=== PATIENT | male | born 1955 | race Caucasian/White ===

== ENCOUNTER 2017-08-18 08:59 | Observation (INO) | payer BC ==
[2017-08-18 10:35] LABS: Troponin I 0.025 ng/mL (< 0.028)
[2017-08-18] MEDS ORDERED: Sodium Chloride 0.9% 1,000 ML IV SCH (12:03)
[2017-08-18] MEDS ORDERED: Ondansetron ODT 4 MG TAB SL PRN (12:03)
[2017-08-18] MEDS ORDERED: Ondansetron HCl/PF 4 MG/2 ML Vial IVP PRN (12:03)
--- NOTE | 2017-08-18 12:12 | HP ---
DATE OF ADMISSION: 08/18/2017 PRIMARY CARE PHYSICIAN: Ham Gómez D.O. TIME OF SERVICE: 10:15 CHIEF COMPLAINT: Chest pain, nausea. HISTORY OF PRESENT ILLNESS: Mr. Alarcon is a 61-year-old white male with history of rosacea, hypothyr oidism, hyperlipidemia, primary triglycerides, anxiety/depression, obesity, who presents to the emerg ency department in an outside facility in [place] for evaluation of chest discomfort. He describes it as chest tightness lasted about an hour and started on 04:30 this morning. He is accompanied by s ome nausea without vomiting and some shortness of breath. He states that when he takes a deep breath , his chest tightness feels tighter. He presented to the emergency department for evaluation. We ga ve him some aspirin and Zofran, initially noted to be hypoxic, but cleared with deep inspiration. He had a history of a stress test some 10 years ago. So they transferred him here for further workup. On arrival here, he is afebrile. Vital signs have been normal. No recurrence of the chest pain abou t 05:20 this morning. Review of the records showed he had a stress test back 5 years ago in 2012 that was negative. The levi qureshi said that was done for a routine screening. He denies any fevers, no chills, but he does feel cold. No current nausea or vomiting. No diarrhea or constipation. Overall, he feels "lousy." Denies any muscle aches, cough or phlegm production. PAST MEDICAL HISTORY: 1. Hypothyroidism. 2. Rosacea. 3. Hyperlipidemia. 4. Anxiety/depression. 5. Obesity. PAST SURGICAL HISTORY: 1. Appendectomy. 2. Cholecystectomy. 3. Left knee scoping x2. 4. Epididymectomy. 5. Eye muscle surgery remotely for strabismus. HOME MEDICATIONS: 1. Something for his rosacea, he cannot recall. 2. He has new hyperlipidemia medicine. He has not picked it from the pharmacy yet. Does not take a ny of his thyroid. ALLERGIES: 1. DARVOCET/PROPOXYPHENE. 2. IODINE. 3. PENICILLIN causes a rash. 4. SHELLFISH. 5. STATINS cause muscle aches. FAMILY HISTORY: Negative for clotting or bleeding disorder. No immune dysfunction. Dad lived well into his 90s and mom lived into her mid 80s without any premature coronary artery disease. SOCIAL HISTORY: Negative for habits x3. Use only rare social alcohol, no IV drug use. 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 REVIEW OF SYSTEMS: A 10-point review of systems was performed, negative for all systems except as pe r HPI. PHYSICAL EXAMINATION: VITAL SIGNS: Temperature 97.8, pulse 63, blood pressure 152/94, respiratory rate 15, satting 94% on room air. GENERAL: He is awake. He is alert. He is oriented x3. He is overweight, well-developed, well-nour ished, white male who appears to be in no distress. HEENT: Normocephalic, atraumatic. His pupils are equal, round, and reactive bilaterally. Mucosa me mbranes are moist. No visible lesion. No thrush. NECK: Supple. No lymphadenopathy, no JVD, no thyromegaly. Normal carotid upstrokes without bruits. LUNGS: Clear. He has fine bibasilar crackles that cleared with deep inspiration. He has no wheezes , no rales, no rhonchi. No prolonged expiratory phase. CARDIOVASCULAR: Normal S1, S2. No S3, S4. No audible murmurs. ABDOMEN: Obese, it is nontender, nondistended. I cannot palpate internal organs. EXTREMITIES: No cyanosis, clubbing with 1+ edema from the mid tibia level down. SKIN: Warm, moist and well perfused. He has no other rash or lesions. NEUROLOGIC: Cranial nerves II-XII are grossly intact. He has 5/5 strength in all 4 extremities. No focal deficits. Normal speech. MUSCULOSKELETAL: Normal to inspection. Large joints appear un-inflamed. He has good range of motio n. LABORATORY DATA: Sodium 139, potassium 3.8, chloride 106, bicarb 22, BUN 16, creatinine 1.17, glucos e 77 and calcium 9.2. Liver function appears within normal limits. We got CBC, which showed white count 6.0, hemoglobin 13 .8, hematocrit 43.6, and platelet count 148,000 with normal differential. CK-MB was normal at 4.1, troponin I was undetectable less than 0.010. D-dimer was normal at 0.3. BN P was normal, less than 10. IMAGING DATA: Chest x-ray showed poor penetration, but no acute cardiopulmonary disease noted. ASSESSMENT AND PLAN: 1. Chest discomfort. Seriously doubt cardiac in nature. We will place the patient in observation. We will get serial cardiac biomarkers, check morning fasting lipid profile and get a nuclear stress test if his biomarkers remain negative. In the meantime, we will place him on nitro paste, beta-bloc ker, full dose aspirin, and oxygen 2 liters nasal cannula continuous to protect his heart in the mean time. His biomarkers turn positive, we will hold on stress test and ask Cardiology to evaluate. 2. Severe obesity. 3. Hypothyroidism. We will check morning TSH and free T4. 4. Rosacea. 5. Anxiety/depression. 6. Hyperlipidemia, fasting profile in the morning. 7. Obesity.
[2017-08-18] MEDS ORDERED: Ondansetron ODT 4 MG TAB PO PRN (12:13)
[2017-08-18] MEDS ORDERED: HYDROcodone/Acetaminophen 10/325 mg Tablet PO PRN (12:13)
[2017-08-18] MEDS ORDERED: Acetaminophen 325 MG TAB PO PRN (12:13)
[2017-08-18] MEDS: HYDROcodone/Acetaminophen 5/325 mg Tablet PO PRN ×2 (12:22→20:23)
[2017-08-18] MEDS ORDERED: Enoxaparin Sodium 40 MG/0.4 ML SYRINGE SC SCH (12:30)
[2017-08-18 12:33] VITALS: BMI 35.6
[2017-08-18 13:24] LABS: CKMB 5.7 ng/mL (0-6.6); Troponin I Less than 0.010 ng/mL (< 0.028)
[2017-08-18] MEDS: Nitroglycerin 2% Ointment 1 INCH/1 GM Packet TOP SCH ×2 (14:04→21:44)
--- NOTE | 2017-08-18 15:50 | NM ---
STRESS MYOCARDIAL PERFUSION STUDY: 08/18/17 HISTORY: Chest pain, dyslipidemia, family history of coronary artery disease. RADIOPHARMACEUTICALS: 29.4 millicuries technetium 99m Sestamibi, IV at stress. MEDICATIONS: 24.8 mL (74.5 mg) Adenosine, IV. COMPARISON: 03/09/13. FINDINGS: There is normal uptake and distribution of radiotracer seen throughout the left ventricular myocardiu m on stress acquisition. No focal defect is seen within the left ventricular myocardium on stress river ging. The gated images show normal ventricular wall motion and wall thickening. The calculated left v entricular ejection fraction is 59%. Calculated left ventricular ejection fraction on the prior study was 63%. IMPRESSION: 1. Normal stress only myocardial perfusion study without evidence of a defect to suggest ischemi a or scarring involving the left ventricular myocardium. 2. Normal LV function with normal LVEF of 59%. POS: [facility]
[2017-08-18 16:03] LABS: CKMB 6.4 ng/mL (0-6.6); Troponin I Less than 0.010 ng/mL (< 0.028)
[2017-08-18] MEDS: Sodium Chloride 0.9% 1,000 ML IV SCH (17:53)
[2017-08-18] MEDS: Famotidine 20 MG TAB PO SCH (20:20)
[2017-08-18] MEDS ORDERED: Metoprolol Tartrate 25 MG TAB PO SCH (21:00)
[2017-08-18 21:28] LABS: CKMB 5.8 ng/mL (0-6.6); Troponin I Less than 0.010 ng/mL (< 0.028)
[2017-08-19] MEDS: Sodium Chloride 0.9% 1,000 ML IV SCH (03:30)
[2017-08-19] MEDS: Nitroglycerin 2% Ointment 1 INCH/1 GM Packet TOP SCH (05:25)
[2017-08-19 06:05] LABS: Cardiac Risk 6.6 (Less than 4.5); Cholesterol 164 mg/dl (< 200 Desired); HDL Cholesterol 25 mg/dL (>60 Neg Risk); Triglycerides 409 mg/dL (Less than 150)
[2017-08-19 06:09] LABS: CKMB 4.3 ng/mL (0-6.6); Troponin I 0.014 ng/mL (< 0.028)
--- NOTE | 2017-08-19 08:32 | DIS ---
PRIMARY CARE PHYSICIAN: Dr. Rohan Gómez DATE OF ADMISSION: 08/18/2017 DATE OF DISCHARGE: 08/19/2017 DISCHARGE DIAGNOSES: 1. Noncardiac chest pain. 2. Hyperlipidemia, primary triglycerides. 3. Obesity. 4. Hypothyroidism. 5. Medical noncompliance. CONSULTATIONS: None. PROCEDURES: Cardiolite stress test 08/18/2016. HOSPITAL COURSE: Mr. Alarcon is a 61-year-old male with the above history who presents to an outside Emergency Department on the day of admission with acute onset of chest pressure starting about 0430, awoke up out of sleep. He presented to the emergency department and it went away about an hour after it started. He does not cite any specific intervention that caused it to go away. Initial workup was negative, biomarkers normal, blood counts normal. He was transferred here for fur ther workup. On arrival, he received another set of cardiac biomarkers that were negative. We were called for adm ission. HOSPITAL COURSE: The patient was seen and examined by me, placed in observation overnight. A third set of biomarkers were negative and a Cardiolite stress test was ordered and performed late on 2017. It was negative for reversible/induced ischemia and negative for EKG changes. Overnight, he did well. This morning he was complaining of some dizziness, but vital signs were norm al and he had a normal orthostatics. Repeat labs were unremarkable. Troponins were negative x4, hem oglobin A1c was normal at 6.0, and triglycerides were elevated in the 406 range, which is not new for this patient. He was discharged home on his home medication regimen with the addition of aspirin 81 mg daily to follow up with the primary care physician. DISCHARGE PHYSICAL EXAMINATION: The patient was seen and examined on the day of discharge. Dischar ge plan and disposition was discussed with the patient face to face at the bedside. DISCHARGE MEDICATIONS: 1. Aspirin 81 mg daily. 2. Doxycycline 100 mg daily for rosacea. 3. Levothyroxine 50 mcg daily. 4. Mobic 7.5 mg daily as needed. 5. Venlafaxine 75 mg daily. FOLLOWUP APPOINTMENTS: Dr. Rohan Gómez within a week. DISCHARGE ACTIVITY: Per cardiopulmonary limits. DISCHARGE DIET: Heart healthy recommended. DISCHARGE CONDITION: Stable. DISPOSITION: He will be discharged home via private vehicle.
[2017-08-19] MEDS ORDERED: Enoxaparin Sodium 40 MG/0.4 ML SYRINGE SC SCH (09:00)
[2017-08-19] MEDS ORDERED: Aspirin 325 mg Enteric Coated Tablet PO SCH (09:00)
[2017-08-19 09:20] VITALS: BP 125/68; TEMP 98.3
[2017-08-19] MEDS: Famotidine 20 MG TAB PO SCH (09:36)
--- NOTE | 2017-08-21 14:25 | EKG ---
Test Reason : CP Blood Pressure : / mmHG Vent. Rate : 061 BPM Atrial Rate : 061 BPM P-R Int : 160 ms QRS Dur : 086 ms QT Int : 404 ms P-R-T Axes : 020 032 048 degrees QTc Int : 406 ms Normal sinus rhythm with sinus arrhythmia Normal ECG Confirmed by LUNA RAMIREZ ([id number]), editorial cartoonist MAYO HANNAH ([id number]) on 08/21/2017 2:24:49 PM Referred By: Confirmed By:LNUA RAMIREZ
--- NOTE | 2017-10-18 15:26 | STRESS ---
Acquisition Time: 2017-08-18 14:03:10 Total Exercise Time: 00:04:00 Test Indications: CHEST PAIN Medications: Protocol: ADENOSINE Max HR: 088 BPM 55% of Pred: 160 BPM Max BP: 160/086 mmHG Max Work Load: 1.0 METS RESTING ECG: NORMAL SINUS RHYTHM AT 70 BPM SYMPTOMS: CHEST PAIN AND HEADACHE NORMAL BP RESPONSE ECTOPY: RARE PAC'S AND PVC'S ECG STRESS: NO SIGNIFICANT CHANGES INTERPRETATION: NEGATIVE ECG/AWAIT NUCLEAR IMAGES FOR DEFINITIVE DIAGNOSIS Confirmed by NIRANJAN YEUNG ELLEN ([id number]) on 10/18/2017 3:26:04 PM Referred By: MD Batsheva HARRY Confirmed By:BETSY YEUNG PA-C
== END 2017-08-19 12:30 | disposition home or self-care (01) ==
LOC: ERS 08:59 → 2SW 10:22
PROVIDERS: ADMIT Internal Medicine Infectious Disease; ATTEND Internal Medicine Infectious Disease
DX: R07.89 Other chest pain (principal); E78.5 Hyperlipidemia, unspecified; E03.9 Hypothyroidism, unspecified; F41.9 Anxiety disorder, unspecified; F32.9 Major depressive disorder, single episode, unspecified; E66.9 Obesity, unspecified; Z68.35 Body mass index [BMI] 35.0-35.9, adult; Z88.0 Allergy status to penicillin; Z88.8 Allergy status to other drugs, medicaments and biological substances; Z91.041 Radiographic dye allergy status; Z91.14 Patient's other noncompliance with medication regimen
CPT/HCPCS: 36415; 78452; 80061; 82553; 83036; 84484; 87804; 93005; 93017; 96360; 96361; 96372; A9500; G0378; J0153; J1650; Q0162

== ENCOUNTER 2018-02-15 22:07 | Inpatient (IN) | payer BC, SELFPAY ==
[2018-02-15 23:01] LABS: Bilirubin Negative (Negative); Blood, Urine Trace (Negative); Clarity CLEAR (Clear); Glucose, Urine (Dipstick) >=1000 mg/dL (Negative); Leukocyte Negative (Negative); Nitrite Negative (Negative); Protein, Urine (Dipstick) Negative (Neg-Trace); Specific Gravity, Urine 1.029 (1.002-1.036); Urobilinogen 0.2 mg/dL (0.2-1.0)
[2018-02-15 23:13] LABS: Bacteria/HPF None Seen HPF (None Seen); Hyaline Casts/LPF NONE SEEN LPF (0-3 Hyaline); RBC/HPF 0-3 HPF (0-3); Squamous Epithelial 0-3 HPF (0-3); WBC/HPF None Seen HPF (0-3)
[2018-02-16 00:37] LABS: #Basophils 0.1 thou/uL (0.0-0.2); #Eosinphils 0.1 thou/uL (0.0-0.7); #Lymphocytes 2.1 thou/uL (1.20-3.40); #Monocytes 0.6 thou/uL (0.11-0.59); #Neutrophils 4.7 thou/uL (1.40-6.50); %Basophils 0.9 % (0.0-1.0); %Eosinophils 1.4 % (0.0-10.0); %Lymphocytes 27.9 % (21.0-51.0); %Monocytes 7.9 % (0.0-10.0); %Neutrophils 61.8 % (42.0-75.0); Hemoglobin 15.3 g/dL (14.0-18.0); Mean Corpuscular HGB CONC 36.4 g/dL (32.0-36.0); Mean Corpuscular Hemoglobin 32.1 pg (27.0-31.0); Mean Corpuscular Volume 88.2 fL (78.0-98.0); Platelet Count 144 thou/uL (130-400); RBC Distribution Width 11.8 % (11.5-14.5); Red Blood Cell (RBC) Count 4.77 mill/uL (4.70-6.10); White Blood Cell (WBC) Count 7.6 thou/uL (4.8-10.8)
[2018-02-16 01:02] LABS: ALT (SGPT) 71 U/L (8-55); AST (SGOT) 46 U/L (5-34); Albumin 4.6 g/dL (3.4-4.8); Alkaline Phosphatase 178 U/L (40-150); Anion Gap 17 mmol/L (10-20); BUN (Urea Nitrogen) 18 mg/dL (8.4-25.7); Bilirubin, Total 1.8 mg/dL (0.2-1.2); CK (CPK) 428 U/L (30-200); Calc. Creatinine Clearance 0 mL/min (70-130); Calcium 10.2 mg/dL (7.8-10.44); Carbon Dioxide 18 mmol/L (23-31); Chloride 97 mmol/L (98-107); Estimated GFR-MDRD 38; Globulin 4.1 g/dL (2.4-3.5); Potassium 3.8 mmol/L (3.5-5.1); Protein, Total 8.7 g/dL (5.8-8.1); Sodium 128 mmol/L (136-145)
[2018-02-16 01:05] LABS: CKMB 5.5 ng/mL (0-6.6); Glucose 591 mg/dL (80-115); Troponin I Less than 0.010 ng/mL (< 0.028)
[2018-02-16 01:56] LABS: Magnesium 2.3 mg/dL (1.6-2.6); Phosphorus 3.6 mg/dL (2.3-4.7)
[2018-02-16] MEDS ORDERED: Insulin Regular 300 UNITS/3 ML VIAL ONE (02:16)
[2018-02-16 06:19] VITALS: BMI 34.7
--- NOTE | 2018-02-16 07:39 | RAD ---
CHEST 1 VIEW: HISTORY: Chest pain, abdominal pain, and weakness. COMPARISON: Radiograph of 08/18/17. FINDINGS: The lungs are clear. No pneumothorax or effusion. Cardiac silhouette and mediastinal contours are w ithin normal limits. IMPRESSION: No acute intrathoracic abnormality. POS: [facility]
--- NOTE | 2018-02-16 07:41 | CT ---
PRELIMINARY REPORT/[facility]/EMERGENTY AFTER-HOURS PROCEDURE CT Abdomen and Pelvis Without Intravenous Contrast CLINICAL HISTORY: 62 years old, male; Pain; Abdominal pain; Flank; Other: Bilateral; Patient HX: Er 7; M62 presented to ed C/O back pain localized around his kidney's bilaterally onset 2 weeks ago. Pt reports pain has wo rsened these past couple of days. Pt reports back pain is exacerbated when he urinates. Pt reports af ter he drinks any liquids, he will have to go to urinate in about 3 minutes. Pt denies abdominal pain , denies n/v/d, denies fever, cough, SOB, or cp. Pt denies HX of kidney stones. Pt reports surgical H X of cholecystectomy. TECHNIQUE: Axial computed tomography images of the abdomen and pelvis without intravenous contrast. Coronal reformatted images were created and reviewed. COMPARISON: No relevant prior studies available. FINDINGS: Lung bases: Normal. No mass. No consolidation. ABDOMEN: Liver: Hepatic steatosis. Gallbladder and bile ducts: Normal. Pancreas: Normal. Spleen: Normal. Adrenals: Normal. Kidneys and ureters: Normal. Stomach and bowel: Normal. PELVIS: Appendix: No findings to suggest acute appendicitis. Bladder: Normal. Reproductive: Normal as visualized. ABDOMEN and PELVIS: Intraperitoneal space: Normal. No free air. No significant fluid collection. Bones/joints: Multilevel thoracolumbar spine degenerative changes. Minimal levoscoliosis of the lumbar spine. No acute fracture. No dislocation. Soft tissues: Normal. Vasculature: Normal. No abdominal aortic aneurysm. Lymph nodes: Normal. IMPRESSION: 1. No acute findings. 2. Non-acute findings are described above. Thank you for allowing us to participate in the care of your patient. Dictated and Authenticated by: Narendra Mayo MD 02/16/2018 1:21 AM Central Time ([place] & [place]) FINAL REPORT CT ABDOMEN AND PELVIS WITHOUT CONTRAST STONE PROTOCOL: HISTORY: Flank pain. COMPARISON: None. FINDINGS: Lung bases are clear. No pericardial effusion. here is diffuse hepatic steatosis. No nephroureterolithiasis or hydroureteral nephrosis. No secondary evidence of a recently passed sto ne. IMPRESSION: Findings and impression are concordant with the preliminary report. POS: [facility]
[2018-02-16] MEDS ORDERED: Dextrose 50% Abboject 50 ML SYRINGE SLOW IVP PRN (11:09)
[2018-02-16] MEDS ORDERED: HumaLOG 300 UNITS/3 ML VIAL SC PRN (11:09)
[2018-02-16] MEDS ORDERED: Dextrose 5% in Water 1,000 ML IV PRN (11:09)
[2018-02-16] MEDS ORDERED: Senokot 8.6 MG TAB PO PRN (11:09)
[2018-02-16] MEDS ORDERED: Guaifenesin DM 100-10/5 ML UDCUP PO PRN (11:09)
[2018-02-16] MEDS: Sodium Chloride 0.9% 1,000 ML IV SCH ×2 (11:57→21:39)
[2018-02-16] MEDS: HumaLOG 300 UNITS/3 ML VIAL SC PRN ×2 (12:11→17:45)
[2018-02-16 16:43] LABS: Anion Gap 12 mmol/L (10-20); BUN (Urea Nitrogen) 13 mg/dL (8.4-25.7); Calc. Creatinine Clearance 107 mL/min (70-130); Calcium 8.8 mg/dL (7.8-10.44); Carbon Dioxide 23 mmol/L (23-31); Chloride 108 mmol/L (98-107); Estimated GFR-MDRD 55; Glucose 273 mg/dL (80-115); Potassium 3.6 mmol/L (3.5-5.1); Sodium 139 mmol/L (136-145)
[2018-02-16] MEDS ORDERED: Potassium Chloride 20 MEQ TAB PO SCH (17:00)
--- NOTE | 2018-02-16 19:17 | HP ---
REASON FOR ADMISSION: New onset diabetes mellitus type 2, acute kidney injury, moderate dehydration, elevated liver enzymes, for further evaluation. HISTORY OF PRESENT ILLNESS: The patient gives history of feeling bad from last two weeks. This has been progressively getting worse. He has been having lower back pain along with frequent urination from last 3 days. He has no complaints of diarrhea and nausea. No complaints of cough or expectoration. No complaints of chest pain, palpitation, PND, or orthopnea. His last physical exam was a year ago and turned out everything well per patient. 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 CURRENT MEDICATIONS: Takes levothyroxine 50 mcg daily. ALLERGIES: Allergic to DARVON, IODINE, PENICILLIN, SHELLFISH and STATINS. SHELLFISH causes his throat to close up. STATINS cause itching. PERSONAL HISTORY: Does not abuse alcohol or drugs. No history of smoking. 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 He stays with his . FAMILY HISTORY: Mother at the age of 85 years. She has had history of COPD. Father of stroke and he was 95 years old. CODE STATUS: FULL. REVIEW OF SYSTEMS: The following complete review of systems was negative, unless otherwise mentioned in the HPI or below: Constitutional: Weight loss or gain, ability to conduct usual activities. Skin: Rash, itching. Eyes: Double vision, pain. ENT/Mouth: Nose bleeding, neck stiffness, pain, tenderness. Cardiovascular: Palpitations, dyspnea on exertion, orthopnea. Respiratory: Shortness of breath, wheezing, cough, hemoptysis, fever or night sweats. Gastrointestinal: Poor appetite, abdominal pain, heartburn, nausea, vomiting, constipation, or diarrhea. Genitourinary: Urgency, frequency, dysuria, nocturia. Musculoskeletal: Pain, swelling. Neurologic/Psychiatric: Anxiety, depression. Allergy/Immunologic: Skin rash, bleeding tendency. PHYSICAL EXAMINATION: GENERAL: The patient is a 62-year-old male who is currently not in any acute distress. VITAL SIGNS: Blood pressure 138/86, pulse 84 per minute, respiratory rate 16 per minute, temperature 98.1 degrees Fahrenheit, saturating 96% on room air. NECK: Supple, no elevated JVD. HEENT: Eyes: Extraocular muscles intact. Pupils reacting to light. Oral cavity: Mucous membranes are dry. No exudates or congestion. CARDIOVASCULAR: S1, S2 heard. Regular rhythm. RESPIRATORY: Air entry 2+ bilateral. No rales or rhonchi. ABDOMEN: Soft, bowel sounds heard. No tenderness, rigidity or guarding. EXTREMITIES: No peripheral edema or calf tenderness. VASCULAR SYSTEM: Peripheral pulses 2+ bilateral. No ischemic ulcerations or gangrene. CENTRAL NERVOUS SYSTEM: No gross focal deficits noted. The patient is alert, awake, oriented well. PSYCHIATRIC: The patient's mood is euthymic. No hallucinations or delusions. LABORATORY AND X-RAY FINDINGS: CT of the abdomen and pelvis done shows no acute abnormalities. Chest x-ray done shows no acute cardiopulmonary abnormalities. Beta hydroxybutyrate is elevated at 0.6, serum glucose was almost 600 at 591, BUN 18, creatinine 1.8, serum bicarbonate is 18. Sodium 128 , chloride is 97, AST 46, ALT 71, alkaline phosphatase 178. CK was 428, total bilirubin 1.8. First set of cardiac enzymes are negative. Albumin is 4.6. Lipase is 70. White count of 7, H&H 15 and 42, platelet count 144 with 61% neutrophils. EKG done shows normal sinus rhythm at 80 beats per minute. CLINICAL IMPRESSION AND PLAN: The patient will be admitted to medical floor for new onset severe hyperglycemia with diabetes mellitus type 2, metabolic acidosis, acute kidney injury, moderate dehydration, hyponatremia, elevated liver enzymes for further evaluation. Likely has mild diabetic ketoacidosis with new onset type 2 diabetes. The patient will be aggressively hydrated and we will place him on Lantus 10 units subcu twice daily for now. He will also be on Humalog moderate coverage at a.c. and at bedtime. We will obtain acute hepatitis panel. We will follow up his electrolytes closely. If needed, potassium will be replaced in view of massively elevated serum glucose. If his creatinine does not get corrected, likely the patient has underlying CKD as well. We will obtain a lipid profile in the morning as well. [facility]
[2018-02-16] MEDS: Famotidine 20 MG TAB PO SCH (21:39)
[2018-02-16] MEDS: Insulin Glargine 10 UNITS in Pre-Filled Syringe 1 EACH SC SCH (21:42)
[2018-02-17 05:08] LABS: Hemoglobin A1c 10.3 % (4.0-6.0)
[2018-02-17 05:28] LABS: Anion Gap 13 mmol/L (10-20); BUN (Urea Nitrogen) 14 mg/dL (8.4-25.7); Calc. Creatinine Clearance 113 mL/min (70-130); Calcium 8.5 mg/dL (7.8-10.44); Carbon Dioxide 19 mmol/L (23-31); Cardiac Risk 14.5 (Less than 4.5); Chloride 109 mmol/L (98-107); Cholesterol 261 mg/dl (< 200 Desired); Estimated GFR-MDRD 58; Glucose 277 mg/dL (80-115); HDL Cholesterol 18 mg/dL (>60 Neg Risk); Potassium 3.8 mmol/L (3.5-5.1); Sodium 137 mmol/L (136-145); Triglycerides 871 mg/dL (Less than 150)
[2018-02-17 05:44] LABS: HBCM Index 0.06 S/CO (0-0.79); HBSAg Index 0.22 S/CO (0-0.99); Hep A IgM AB Non-Reactive (NonReactive); Hep A IgM S/CO 0.19 S/CO (0-0.79); Hep B Surf Ag Non-Reactive S/CO (NonReactive); Hep C IgG Ab Non-Reactive (NonReactive); Hep C Index 0.16 S/CO (0-0.79); Hepatitis B Core IGM Abs Non-Reactive (NonReactive)
[2018-02-17 06:09] LABS: #Basophils 0.1 thou/uL (0.0-0.2); #Eosinphils 0.2 thou/uL (0.0-0.7); #Lymphocytes 1.8 thou/uL (1.20-3.40); #Monocytes 0.4 thou/uL (0.11-0.59); #Neutrophils 2.7 thou/uL (1.40-6.50); %Basophils 1.1 % (0.0-1.0); %Eosinophils 4.5 % (0.0-10.0); %Lymphocytes 34.7 % (21.0-51.0); %Neutrophils 51.8 % (42.0-75.0); Hemoglobin 13.5 g/dL (14.0-18.0); Mean Corpuscular HGB CONC 36.6 g/dL (32.0-36.0); Mean Corpuscular Hemoglobin 33.1 pg (27.0-31.0); Mean Corpuscular Volume 90.7 fL (78.0-98.0); Mean Platelet Volume 8.5 fL (7.4-10.4); PLT Morphology Comment Appears Decreased; Platelet Count 118 thou/uL (130-400); RBC Distribution Width 11.8 % (11.5-14.5); Red Blood Cell (RBC) Count 4.08 mill/uL (4.70-6.10); White Blood Cell (WBC) Count 5.2 thou/uL (4.8-10.8)
[2018-02-17] MEDS: Levothyroxine Sodium 50 MCG TAB PO SCH (06:19)
[2018-02-17] MEDS: HumaLOG 300 UNITS/3 ML VIAL SC PRN ×3 (06:20→16:29)
[2018-02-17] MEDS: Acetaminophen 325 MG TAB PO PRN ×3 (06:27→21:06)
[2018-02-17] MEDS: Sodium Chloride 0.9% 1,000 ML IV SCH ×2 (06:27→17:10)
[2018-02-17] MEDS: glipiZIDE 5 MG TAB PO SCH ×2 (07:58→16:28)
[2018-02-17] MEDS: Fish Oil 1,000 MG CAP PO SCH (07:58)
[2018-02-17] MEDS: metFORMIN 500 MG TAB PO SCH ×2 (07:58→16:28)
[2018-02-17] MEDS: Famotidine 20 MG TAB PO SCH ×2 (07:58→21:05)
[2018-02-17] MEDS: Enoxaparin Sodium 30 MG/0.3 ML SYRINGE SC SCH (07:59)
[2018-02-17] MEDS: Lisinopril 5 MG TAB PO SCH (07:59)
[2018-02-17 09:06] LABS: Base Excess-Venous 0.2 mmol/L (0 (+/- 2.5)); Bicarbonate (HCO3v) 25.5 mmol/L (1.0-85.0); CO2 Tension (PvCO2) 42.3 mmHg (41.0-51.0); O2 Tension (PvO2) 43.4 mmHg (35.0-45.0); pH (Venous) 7.388 (7.35-7.45); vO2 Saturation-calc 78.3 % (94-98)
[2018-02-17 09:07] LABS: Calcium, Ionized 1.18 mmol/L (1.12-1.32); Hemoglobin - Calc 16.5 g/dL (12.0-18.0); Potassium 3.7 mmol/L (3.4-4.7); T. Carbon Dioxide 26.8 mmol/L (1.0-85.0)
[2018-02-17] MEDS: Insulin Glargine 10 UNITS in Pre-Filled Syringe 1 EACH SC SCH (09:07)
--- NOTE | 2018-02-17 11:31 | PDOC.PN ---
- Subjective Encounter Start Date: 02/17/18 Encounter Start Time: 07:50 Subjective: no sob, is ambulating in room -: feels better - Objective Resuscitation Status: Resuscitation Status FULL:Full Resuscitation MAR Reviewed: Yes Vital Signs & Weight: Vital Signs (12 hours) Temp Pulse Resp BP BP BP Pulse Ox 02/17/18 08:00 98.2 F 72 18 95 02/17/18 07:59 72 131/82 02/17/18 07:51 98.2 F 72 18 131/82 95 02/17/18 04:52 97.7 F 69 18 146/88 H 93 L Weight Weight 285 lb I&O: 02/16/18 02/17/18 02/18/18 06:59 06:59 06:59 Intake Total 2950 Balance 2950 Result Diagrams: 02/17/18 04:32 02/17/18 04:32 Additional Labs: Accuchecks 02/17/18 02/16/18 02/16/18 04:49 21:20 16:42 POC Glucose 296 H 297 H 243 H 02/16/18 11:20 POC Glucose 329 H Phys Exam - Physical Examination HEENT: PERRLA, moist MMs Neck: no JVD, supple Respiratory: no wheezing, no rales Cardiovascular: RRR, no significant murmur Gastrointestinal: soft, non-tender, no distention, positive bowel sounds Musculoskeletal: no edema, pulses present Neurological: non-focal, moves all 4 limbs Psychiatric: normal affect, A&O x 3 Dx/Plan (1) DM type 2 (diabetes mellitus, type 2) Status: Acute Qualifiers: Diabetes mellitus snf insulin use: without long term care social worker use Diabetes mellitus complication status: with hyperglycemia Qualified Code(s): E11.65 - Type 2 diabetes mellitus with hyperglycemia Comment: new onset (2) KRYSTEN (acute kidney injury) Code(s): N17.9 - ACUTE KIDNEY FAILURE, UNSPECIFIED Status: Acute Comment: resolving (3) Elevated LFTs Code(s): R94.5 - ABNORMAL RESULTS OF LIVER FUNCTION STUDIES Status: Acute (4) Obesity (BMI 30.0-34.9) Code(s): E66.9 - OBESITY, UNSPECIFIED Status: Acute (5) Metabolic acidosis Code(s): E87.2 - ACIDOSIS Status: Acute (6) Hypertriglyceridemia Code(s): E78.1 - PURE HYPERGLYCERIDEMIA Status: Acute (7) Dyslipidemia Code(s): E78.5 - HYPERLIPIDEMIA, UNSPECIFIED Status: Acute - Plan will add glypizide and metformin from today, dc lantus after am dose -: is allergic to HMG co-A inhibitors, tricor and fish oil plus strict diet co -: -ntrol of hypertriglyceridemia. Dietary consult -: ac hep panel is -ve. DC plan in am -: Plan is to place on all $4 pills so he can afford and be compliant * . Review of Systems - Medications/Allergies Allergies/Adverse Reactions: Allergies Allergy/AdvReac Type Severity Reaction Status Date / Time Penicillins Allergy Mild Rash Verified 08/18/17 12:02 Qmgeitv-Flu-Eyy Reductase Allergy Mild Rash Verified 08/18/17 12:03 Inhibitor iodine Allergy Anaphylaxis Verified 08/18/17 12:01 propoxyphene HCl Allergy Verified 02/16/18 07:33 [From Darvon] Medications: Current Medications Acetaminophen (Tylenol) 650 mg PO Q4H PRN PRN Reason: Headache/Fever or Pain Last Admin: 02/17/18 06:27 Dose: 650 mg Dextrose/Water (Dextrose 50%) 25 gm SLOW IVP PRN PRN PRN Reason: Hypoglycemia Enoxaparin Sodium (Lovenox) 30 mg SC 0900 [facility] Last Admin: 02/17/18 07:59 Dose: 30 mg Famotidine (Pepcid) 20 mg PO BID [facility] Last Admin: 02/17/18 07:58 Dose: 20 mg Fenofibrate (Tricor) 48 mg PO DAILY [facility] Fish Oil (Fish Oil) 1,000 mg PO DAILY [facility] Last Admin: 02/17/18 07:58 Dose: 1,000 mg Glipizide (Glucotrol) 5 mg PO BID-[facility] Last Admin: 02/17/18 07:58 Dose: 5 mg Glucagon (Glucagon) 1 mg IM PRN PRN PRN Reason: Hypoglycemia Guaifenesin/Dextromethorphan (Robitussin Dm) 15 ml PO Q4H PRN PRN Reason: Cough Dextrose/Water (D5w) 1,000 mls @ 0 mls/hr IV .Q0M PRN PRN Reason: Hypoglycemia Sodium Chloride (Normal Saline 0.9%) 1,000 mls @ 100 mls/hr IV .Q10H [facility] Last Admin: 02/17/18 06:27 Dose: 1,000 mls Insulin Human Lispro (Humalog) 0 units SC .MODERATE SLIDING SC PRN PRN Reason: Moderate Correctional Scale Last Admin: 02/17/18 06:20 Dose: 6 unit Insulin Human Lispro (Humalog) 0 units SC .BEDTIME SLIDING SC PRN PRN Reason: Bedtime Correctional Scale Levothyroxine Sodium (Synthroid) 50 mcg PO 0600 [facility] Last Admin: 02/17/18 06:19 Dose: 50 mcg Lisinopril (Zestril) 5 mg PO DAILY [facility] Last Admin: 02/17/18 07:59 Dose: 5 mg Metformin HCl (Glucophage) 500 mg PO BID-WM [facility] Last Admin: 02/17/18 07:58 Dose: 500 mg Senna (Senokot) 2 tab PO HSPRN PRN PRN Reason: Constipation Sodium Chloride (Flush - Normal Saline) 10 ml IVF Q12HR [facility] Last Admin: 02/17/18 09:08 Dose: Not Given Sodium Chloride (Flush - Normal Saline) 10 ml IVF PRN PRN PRN Reason: Saline Flush
[2018-02-17] MEDS: Fenofibrate 48 MG TAB PO SCH (11:38)
--- NOTE | 2018-02-17 13:47 | EKG ---
Test Reason : Blood Pressure : / mmHG Vent. Rate : 080 BPM Atrial Rate : 080 BPM P-R Int : 156 ms QRS Dur : 090 ms QT Int : 386 ms P-R-T Axes : 049 012 032 degrees QTc Int : 445 ms Normal sinus rhythm Normal ECG Confirmed by MEL ABEL D.O. ([id number]), book or script editor JOSE ARMANDO MOYA ([id number]) on 02/17/2018 1:47:29 PM Referred By: Confirmed By:MEL ABEL D.O.
--- NOTE | 2018-02-17 16:56 | EKG ---
Test Reason : Blood Pressure : / mmHG Vent. Rate : 072 BPM Atrial Rate : 072 BPM P-R Int : 152 ms QRS Dur : 094 ms QT Int : 422 ms P-R-T Axes : 024 030 041 degrees QTc Int : 462 ms Normal sinus rhythm Normal ECG Confirmed by GET WILDER ([id number]) on 02/17/2018 4:56:25 PM Referred By: MARKY Confirmed By:GET WILDER
[2018-02-18] MEDS: Sodium Chloride 0.9% 1,000 ML IV SCH (03:35)
[2018-02-18] MEDS: Levothyroxine Sodium 50 MCG TAB PO SCH (06:54)
[2018-02-18] MEDS: Famotidine 20 MG TAB PO SCH (08:25)
[2018-02-18] MEDS: Lisinopril 5 MG TAB PO SCH (08:25)
[2018-02-18] MEDS: metFORMIN 500 MG TAB PO SCH (08:26)
[2018-02-18] MEDS: glipiZIDE 5 MG TAB PO SCH (08:26)
[2018-02-18] MEDS: Fish Oil 1,000 MG CAP PO SCH (08:26)
[2018-02-18] MEDS: Enoxaparin Sodium 30 MG/0.3 ML SYRINGE SC SCH (08:27)
[2018-02-18] MEDS: Fenofibrate 48 MG TAB PO SCH (08:27)
[2018-02-18 08:31] VITALS: BP 125/76
--- NOTE | 2018-02-18 11:06 | PDOC.PN ---
- Subjective Encounter Start Date: 02/18/18 Encounter Start Time: 07:30 Subjective: feels a bit jittery this am, has not had his breakfast yet -: fingerstick is 200, peripheral pulses are felt -: no rash or chest pain or sob - Objective Resuscitation Status: Resuscitation Status FULL:Full Resuscitation MAR Reviewed: Yes Vital Signs & Weight: Vital Signs (12 hours) Pulse BP 02/18/18 08:25 63 125/76 Weight Weight 285 lb I&O: 02/17/18 02/18/18 02/19/18 06:59 06:59 06:59 Intake Total 2950 3200 240 Balance 2950 3200 240 Result Diagrams: 02/17/18 04:32 02/17/18 04:32 Additional Labs: Accuchecks 02/18/18 02/17/18 02/17/18 04:11 20:49 17:00 POC Glucose 203 H 207 H 215 H 02/17/18 02/17/18 02/17/18 16:12 16:05 11:31 POC Glucose 99 229 H 301 H Phys Exam - Physical Examination HEENT: PERRLA, moist MMs Neck: no JVD, supple Respiratory: no wheezing, no rales Cardiovascular: RRR, no significant murmur Gastrointestinal: soft, non-tender, no distention, positive bowel sounds Musculoskeletal: no edema, pulses present Neurological: non-focal, moves all 4 limbs Psychiatric: normal affect, A&O x 3 Dx/Plan (1) DM type 2 (diabetes mellitus, type 2) Status: Acute Qualifiers: Diabetes mellitus superintendent marine oil terminal insulin use: without superintendent marine oil terminal use Diabetes mellitus complication status: with hyperglycemia Qualified Code(s): E11.65 - Type 2 diabetes mellitus with hyperglycemia Comment: new onset (2) KRYSTEN (acute kidney injury) Code(s): N17.9 - ACUTE KIDNEY FAILURE, UNSPECIFIED Status: Resolved (3) Elevated LFTs Code(s): R94.5 - ABNORMAL RESULTS OF LIVER FUNCTION STUDIES Status: Acute (4) Obesity (BMI 30.0-34.9) Code(s): E66.9 - OBESITY, UNSPECIFIED Status: Chronic (5) Metabolic acidosis Code(s): E87.2 - ACIDOSIS Status: Resolved (6) Hypertriglyceridemia Code(s): E78.1 - PURE HYPERGLYCERIDEMIA Status: Acute (7) Dyslipidemia Code(s): E78.5 - HYPERLIPIDEMIA, UNSPECIFIED Status: Acute - Plan may dc home -: dietary consultation prior to discharge -: counselled reg medication and dietary compliance -: meds faxed to his pharmacy -: diabetic education per staff * .
[2018-02-18 11:09] VITALS: TEMP 97.2
[2018-02-18] MEDS: HumaLOG 300 UNITS/3 ML VIAL SC PRN (12:10)
--- NOTE | 2018-02-18 20:22 | DIS ---
DATE OF ADMISSION: 02/16/2018 DATE OF DISCHARGE: 02/18/2018 DISCHARGE DISPOSITION: To home. PRIMARY DISCHARGE DIAGNOSES: 1. New-onset diabetes with severe hyperglycemia with mild diabetic ketoacidosis , resolved. 2. Acute kidney injury, resolved. 3. Elevated liver function tests, likely due to severe hyperlipidemia and hypertriglyceridemia. 4. Metabolic acidosis due to acute kidney injury. 5. Obesity. PROCEDURES DONE DURING HOSPITALIZATION: CT of the abdomen and pelvis without IV contrast done showed hepatic steatosis, otherwise no acute findings. Chest x -ray done showed no acute intrathoracic abnormality. H&H 13 and 37, platelet count 118, MCV is 90. Triglycerides 871, total cholesterol 261, HDL 18. Hemoglobin A1c 10.3. Admitting BUN and creatinine were 18 and 1.8 with serum glucose of 591 on the day of admission. Sodium was 128, total bilirubin 1.8, AST 46, ALT 71, alkaline phosphatase 178, CK levels 428. One set of cardiac enzymes was negative. Lipase was 70. Beta hydroxybutyrate 0.6. Acute hepatitis panel was negative. DISCHARGE MEDICATIONS: Metformin 500 mg p.o. twice daily, glipizide 5 mg p.o. daily, fish oil 1000 mg p.o. daily, lisinopril 5 mg p.o. daily, TriCor 48 mg p.o. daily, Synthroid 50 mcg p.o. daily. ALLERGIES: STATINS, PENICILLIN, IODINE, PROPOXYPHENE. DISCHARGE PLAN: The patient to follow up with primary care physician in 1 week. He has been advised to check fingerstick glucose twice daily and record for a period of 10 days and to follow up with primary care physician. BRIEF COURSE DURING HOSPITALIZATION: The patient initially came in with complaints of feeling bad, which was progressively getting worse. He also had frequent urination from last 3 days. He was found to have had serum sugars of 591. He was essentially admitted for new-onset diabetes with severe hyperglycemia and mild diabetic ketoacidosis, acute kidney injury, metabolic acidosis, and elevated LFTs. The patient has severe hypertriglyceridemia as well and is allergic to STATINS. In view of this, he was placed on TriCor along with fish oil. He was initially on Levemir, which has been transitioned to metformin and glipizide. The patient wanted to be on 4-dollar medication as he does not have insurance. He is also placed on a small dose of lisinopril for renal protection with mild hypertension. The patient has been advised to check fingerstick glucose twice daily for a period of 10 days and needs to follow up with primary care physician for changes in his medications. He is ambulating and eating well prior to discharge. Please see a [id number] documentation for the day of discharge. Please note, the patient had a dietary consultation as well to help with his hypertriglyceridemia with STATIN allergy and new-onset diabetes. [place]
== END 2018-02-18 14:11 | disposition home or self-care (01) | DRG 682 ==
LOC: ERS 22:07 → T4-B 02-16 05:12 → OBSVTOIN 02-16 05:12
PROVIDERS: ADMIT Hospitalist; ATTEND Hospitalist
DX: N17.9 Acute kidney failure, unspecified (principal); E11.10 Type 2 diabetes mellitus with ketoacidosis without coma; E87.1 Hypo-osmolality and hyponatremia; E87.2 Acidosis; E86.0 Dehydration; Z79.84 Long term (current) use of oral hypoglycemic drugs; E78.5 Hyperlipidemia, unspecified; E03.9 Hypothyroidism, unspecified; Z88.8 Allergy status to other drugs, medicaments and biological substances; Z88.0 Allergy status to penicillin; Z91.013 Allergy to seafood; E66.9 Obesity, unspecified; Z68.34 Body mass index [BMI] 34.0-34.9, adult; E78.00 Pure hypercholesterolemia, unspecified
CPT/HCPCS: 36415; 36416; 71045; 74176; 80048; 80053; 80061; 80074; 81003; 81015; 82010; 82330; 82550; 82553; 82803; 83036; 83690; 83735; 84100; 84484; 85025; 85379; 87086; 93005; 93010; 96361; 96374; A4216; J1650; J1815

== ENCOUNTER 2020-12-25 13:37 | Emergency (ER) | payer MEDICARE ==
[2020-12-25] MEDS ORDERED: predniSONE 20 MG TAB ONE (16:06)
== END 2020-12-25 16:20 | disposition home or self-care (01) ==
LOC: ERS 13:37
DX: R10.30 Lower abdominal pain, unspecified (principal); R10.814 Left lower quadrant abdominal tenderness; R10.813 Right lower quadrant abdominal tenderness; E03.9 Hypothyroidism, unspecified; E78.5 Hyperlipidemia, unspecified; I10 Essential (primary) hypertension; Z79.82 Long term (current) use of aspirin; Z79.899 Other long term (current) drug therapy
CPT/HCPCS: J7512

== ENCOUNTER 2021-02-11 19:00 | Outpatient (CLI) | payer BC, MEDICARE | END 2021-02-11 19:01 | disposition home or self-care (01) | LOC: SLEEPLAB 19:00 | PROVIDERS: ATTEND Family Medicine | DX: R06.89 Other abnormalities of breathing (principal); G47.33 Obstructive sleep apnea (adult) (pediatric); G47.00 Insomnia, unspecified; R06.83 Snoring; R53.83 Other fatigue; G47.10 Hypersomnia, unspecified; E66.9 Obesity, unspecified; Z68.34 Body mass index [BMI] 34.0-34.9, adult | CPT/HCPCS: 95811 ==

== ENCOUNTER 2022-09-23 20:09 | Inpatient (IN) | payer MEDICARE ==
[2022-09-23] MEDS ORDERED: Ondansetron ODT 4 MG TAB PO PRN (21:33)
[2022-09-23] MEDS ORDERED: Labetalol HCl 100 MG/20 ML VIAL SLOW IVP PRN (21:33)
[2022-09-23] MEDS ORDERED: Ondansetron PF 4 MG/2 ML Vial IVP PRN (21:33)
[2022-09-23] MEDS ORDERED: Calcium Carbonate 500 MG ChewTAB PO PRN (21:33)
[2022-09-23] MEDS ORDERED: hydrALAZINE 20 MG/ML VIAL SLOW IVP PRN (21:33)
[2022-09-23] MEDS ORDERED: Senokot S 8.6-50 MG TAB PO PRN (21:33)
[2022-09-23] MEDS ORDERED: NO ANTITHROMBOTICS FS SCH (21:33)
[2022-09-23] MEDS ORDERED: Acetaminophen 650 MG Suppository PR PRN (21:33)
[2022-09-23] MEDS ORDERED: niCARdipine 25 MG in Sodium Chloride 0.9% 250 ML 250 ML IVPB PRN (21:33)
[2022-09-23] MEDS ORDERED: Sodium Chloride 0.9% 1,000 ML IV SCH (22:00)
[2022-09-23] MEDS ORDERED: Dextrose 5% in Water 1,000 ML IV PRN (22:31)
[2022-09-23] MEDS ORDERED: HumaLOG 300 UNITS/3 ML VIAL SC PRN (22:31)
[2022-09-23] MEDS ORDERED: Dextrose 50% Abboject 50 ML SYRINGE SLOW IVP PRN (22:31)
[2022-09-24] MEDS ORDERED: Electrolyte Replacement Protocol 1 EACH FS SCH (01:00)
[2022-09-24] MEDS ORDERED: Levothyroxine Sodium 50 MCG TAB PO SCH (06:00)
[2022-09-24] MEDS: Famotidine/PF 20 mg/2ml Vial SLOW IVP SCH ×2 (08:45→21:06)
[2022-09-24] MEDS: Acetaminophen 325 MG TAB PO PRN ×2 (08:45→11:56)
[2022-09-24] MEDS: Fenofibrate 48 MG TAB PO SCH (08:48)
[2022-09-24] MEDS ORDERED: Gabapentin 300 MG CAP PO SCH (12:00)
[2022-09-24] MEDS ORDERED: Gabapentin 300 MG CAP PO PRN (14:50)
[2022-09-24] MEDS: glipiZIDE 5 MG TAB PO SCH (17:46)
[2022-09-24 20:32] LABS: Hemoglobin 15.9 g/dL (14.0-18.0); Mean Corpuscular Hemoglobin 32.1 pg (27.0-31.0); Mean Corpuscular Volume 91.9 fl (78.0-98.0); Mean Platelet Volume 8.8 fL (7.4-10.4); Platelet Count 119 10x3/uL (130-400); RBC Distribution Width 11.8 % (11.5-14.5); Red Blood Cell (RBC) Count 4.93 mill/uL (4.70-6.10); White Blood Cell (WBC) Count 9.8 10x3/uL (4.8-10.8)
[2022-09-24 20:37] LABS: #Basophils 0.1 thou/uL (0.0-0.2); #Eosinphils 0.1 thou/uL (0.0-0.7); #Lymphocytes 1.8 thou/uL (1.20-3.40); #Monocytes 0.7 thou/uL (0.11-0.59); #Neutrophils 7.1 thou/uL (1.40-6.50); %Basophils 0.8 % (0.0-1.0); %Eosinophils 0.7 % (0.0-10.0); %Lymphocytes 18.7 % (21.0-51.0); %Monocytes 7.1 % (0.0-10.0); %Neutrophils 72.7 % (42.0-75.0)
[2022-09-24 20:41] LABS: Albumin 3.9 g/dL (3.4-4.8)
[2022-09-24 20:42] LABS: Chloride 109 mmol/L (98-107); Potassium 4.1 mmol/L (3.5-5.1); Sodium 134 mmol/L (136-145)
[2022-09-24 20:43] LABS: Calcium 9.4 mg/dL (7.8-10.44)
[2022-09-24 20:44] LABS: Glucose 321 mg/dL (80-115); Protein, Total 7.9 g/dL (5.8-8.1)
[2022-09-24 20:45] LABS: Carbon Dioxide 13 mmol/L (23-31)
[2022-09-24 20:46] LABS: Alkaline Phosphatase 121 U/L (40-110); Bilirubin, Total 0.8 mg/dL (0.2-1.2)
[2022-09-24 20:47] LABS: Calc. Creatinine Clearance 90 mL/min (70-130); Estimated GFR 54
[2022-09-24 20:48] LABS: BUN (Urea Nitrogen) 19 mg/dL (8.4-25.7)
[2022-09-24 20:49] LABS: AST (SGOT) 30 U/L (5-34)
[2022-09-24 20:50] LABS: ALT (SGPT) 42 U/L (8-55)
[2022-09-24 21:00] LABS: Anion Gap 16 mmol/L (10-20)
[2022-09-24] MEDS ORDERED: Atorvastatin Calcium 40 MG TAB PO SCH (21:00)
[2022-09-24] MEDS: Tamsulosin HCl 0.4 MG CAP PO SCH (21:06)
[2022-09-24] MEDS: Venlafaxine HCl XR 150 MG CAP PO SCH (21:06)
[2022-09-24] MEDS ORDERED: HumaLOG 300 UNITS/3 ML VIAL SC PRN ×2 (22:24→22:27)
[2022-09-24] MEDS ORDERED: Insulin Glargine 30 UNITS/0.3 ML VIAL SC SCH (22:30)
[2022-09-24] MEDS ORDERED: Sodium Bicarbonate 100 MEQ in Sodium Chloride 0.45% 1,000 ML IV SCH (22:30)
[2022-09-24] MEDS: HumaLOG 300 UNITS/3 ML VIAL SC PRN (22:58)
[2022-09-25 00:45] LABS: Bacteria/HPF None Seen HPF (None Seen); Bilirubin Negative (Negative); Blood, Urine Negative (Negative); Clarity Clear (Clear); Glucose, Urine (Dipstick) Greater than 1000 mg/dL (Negative); Ketone, Urine Negative (Negative); Leukocyte Negative Leu/uL (Negative); Nitrite Negative (Negative); Protein, Urine (Dipstick) Negative (Neg-Trace); RBC/HPF None Seen HPF (0-3); Specific Gravity, Urine 1.028 (1.002-1.036); Squamous Epithelial None Seen HPF (0-3); Urobilinogen Normal mg/dL (Less than 2); WBC/HPF None Seen HPF (0-3)
[2022-09-25] MEDS: HumaLOG 300 UNITS/3 ML VIAL SC PRN ×3 (03:26→12:37)
[2022-09-25 05:14] LABS: Hemoglobin A1c 7.8 % (4.0-6.0)
[2022-09-25 05:24] LABS: Lactic Acid 1.2 mmol/L (0.5-2.2)
[2022-09-25 05:31] LABS: #Eosinphils 0.1 thou/uL (0.0-0.7); #Lymphocytes 2.2 thou/uL (1.20-3.40); #Monocytes 0.7 thou/uL (0.11-0.59); #Neutrophils 4.9 thou/uL (1.40-6.50); %Basophils 0.4 % (0.0-1.0); %Eosinophils 1.6 % (0.0-10.0); %Lymphocytes 27.7 % (21.0-51.0); %Monocytes 8.2 % (0.0-10.0); %Neutrophils 62.1 % (42.0-75.0); ALT (SGPT) 40 U/L (8-55); AST (SGOT) 24 U/L (5-34); Albumin 3.7 g/dL (3.4-4.8); Alkaline Phosphatase 83 U/L (40-110); Anion Gap 11 mmol/L (10-20); BUN (Urea Nitrogen) 21 mg/dL (8.4-25.7); Bilirubin, Total 0.8 mg/dL (0.2-1.2); Calc. Creatinine Clearance 100 mL/min (70-130); Calcium 8.8 mg/dL (7.8-10.44); Carbon Dioxide 25 mmol/L (23-31); Cardiac Risk 5.5 (Less than 4.5); Chloride 107 mmol/L (98-107); Cholesterol 193 mg/dl (< 200 Desired); Estimated GFR 62; Globulin 3.2 g/dL (2.4-3.5); Glucose 221 mg/dL (80-115); HDL Cholesterol 35 mg/dL (>60 Neg Risk); Hemoglobin 14.7 g/dL (14.0-18.0); LDL Cholesterol, Calculated 111 mg/dL; Mean Corpuscular HGB CONC 34.3 g/dL (32.0-36.0); Mean Corpuscular Hemoglobin 31.4 pg (27.0-31.0); Mean Corpuscular Volume 91.5 fl (78.0-98.0); Mean Platelet Volume 8.7 fL (7.4-10.4); Platelet Count 112 10x3/uL (130-400); Potassium 3.5 mmol/L (3.5-5.1); Protein, Total 6.9 g/dL (5.8-8.1); RBC Distribution Width 11.8 % (11.5-14.5); Red Blood Cell (RBC) Count 4.69 mill/uL (4.70-6.10); Sodium 139 mmol/L (136-145); Triglycerides 237 mg/dL (Less than 150); White Blood Cell (WBC) Count 7.9 10x3/uL (4.8-10.8)
[2022-09-25] MEDS: Levothyroxine Sodium 75 MCG TAB PO SCH (06:07)
[2022-09-25] MEDS ORDERED: Magnesium 2 GM/50 ML(in water) 2 GM in Premix Bag 1 BAG IVPB SCH (08:00)
[2022-09-25] MEDS ORDERED: Potassium Chloride 20 MEQ TAB PO SCH (08:00)
[2022-09-25] MEDS ORDERED: Electrolyte Replacement Protocol FS SCH (08:30)
[2022-09-25] MEDS: Famotidine 20 MG TAB PO SCH ×2 (08:38→20:26)
[2022-09-25] MEDS: Alogliptin 25 MG TAB PO SCH (08:38)
[2022-09-25] MEDS: Empagliflozin 25 MG TAB PO SCH (08:38)
[2022-09-25] MEDS: Aspirin 325 mg Enteric Coated Tablet PO SCH (08:38)
[2022-09-25] MEDS: glipiZIDE 5 MG TAB PO SCH ×2 (08:39→16:21)
[2022-09-25] MEDS: Fenofibrate 48 MG TAB PO SCH (08:40)
[2022-09-25] MEDS: Acetaminophen 325 MG TAB PO PRN (09:54)
[2022-09-25] MEDS ORDERED: Naproxen 500 MG TAB PO SCH (13:00)
[2022-09-25] MEDS ORDERED: Acetaminophen 325 MG TAB PO PRN (14:22)
[2022-09-25] MEDS ORDERED: Fioricet 325/50/40 mg Tablet PO PRN (14:22)
[2022-09-25 15:21] VITALS: BMI 33.0
[2022-09-25] MEDS: Acetaminophen 325 MG TAB PO SCH ×2 (16:20→20:27)
[2022-09-25] MEDS: Tamsulosin HCl 0.4 MG CAP PO SCH (20:26)
[2022-09-25] MEDS: Atorvastatin Calcium 40 MG TAB PO SCH (20:26)
[2022-09-25] MEDS: CO Q-10 CAPSULE 100 MG PO SCH (20:26)
[2022-09-25] MEDS: Venlafaxine HCl XR 150 MG CAP PO SCH (20:27)
[2022-09-26] MEDS: Levothyroxine Sodium 75 MCG TAB PO SCH (06:16)
[2022-09-26] MEDS: HumaLOG 300 UNITS/3 ML VIAL SC PRN (06:25)
[2022-09-26] MEDS: Famotidine 20 MG TAB PO SCH ×2 (09:18→20:14)
[2022-09-26] MEDS: glipiZIDE 5 MG TAB PO SCH ×2 (09:18→16:58)
[2022-09-26] MEDS: Acetaminophen 325 MG TAB PO SCH ×2 (09:18→16:57)
[2022-09-26] MEDS: Cyanocobalamin (Vitamin B-12) 1,000 MCG TAB PO SCH (09:18)
[2022-09-26] MEDS: Aspirin 325 mg Enteric Coated Tablet PO SCH (09:18)
[2022-09-26] MEDS: Empagliflozin 25 MG TAB PO SCH (09:19)
[2022-09-26] MEDS: Alogliptin 25 MG TAB PO SCH (09:19)
[2022-09-26] MEDS: Venlafaxine HCl XR 150 MG CAP PO SCH (20:14)
[2022-09-26] MEDS: Atorvastatin Calcium 40 MG TAB PO SCH (20:14)
[2022-09-26] MEDS: CO Q-10 CAPSULE 100 MG PO SCH (20:14)
[2022-09-26] MEDS: Tamsulosin HCl 0.4 MG CAP PO SCH (20:14)
[2022-09-27 06:12] LABS: #Eosinphils 0.1 thou/uL (0.0-0.7); #Lymphocytes 1.7 thou/uL (1.20-3.40); #Monocytes 0.5 thou/uL (0.11-0.59); #Neutrophils 3.4 thou/uL (1.40-6.50); %Basophils 0.3 % (0.0-1.0); %Eosinophils 2.3 % (0.0-10.0); %Lymphocytes 30.1 % (21.0-51.0); %Monocytes 8.9 % (0.0-10.0); %Neutrophils 58.5 % (42.0-75.0); Mean Corpuscular HGB CONC 32.8 g/dL (32.0-36.0); Mean Corpuscular Hemoglobin 30.3 pg (27.0-31.0); Mean Corpuscular Volume 92.3 fl (78.0-98.0); Mean Platelet Volume 8.9 fL (7.4-10.4); Platelet Count 120 10x3/uL (130-400); RBC Distribution Width 11.7 % (11.5-14.5); Red Blood Cell (RBC) Count 4.94 mill/uL (4.70-6.10); White Blood Cell (WBC) Count 5.8 10x3/uL (4.8-10.8)
[2022-09-27] MEDS: Levothyroxine Sodium 75 MCG TAB PO SCH (06:27)
[2022-09-27 06:33] LABS: Anion Gap 10 mmol/L (10-20); BUN (Urea Nitrogen) 20 mg/dL (8.4-25.7); Calc. Creatinine Clearance 94 mL/min (70-130); Calcium 9.1 mg/dL (7.8-10.44); Carbon Dioxide 26 mmol/L (23-31); Chloride 106 mmol/L (98-107); Estimated GFR 58; Glucose 133 mg/dL (80-115); Sodium 138 mmol/L (136-145)
[2022-09-27] MEDS: Aspirin 325 mg Enteric Coated Tablet PO SCH (08:28)
[2022-09-27] MEDS: glipiZIDE 5 MG TAB PO SCH (08:28)
[2022-09-27] MEDS: Cyanocobalamin (Vitamin B-12) 1,000 MCG TAB PO SCH (08:28)
[2022-09-27] MEDS: Famotidine 20 MG TAB PO SCH (08:28)
[2022-09-27] MEDS: Alogliptin 25 MG TAB PO SCH (08:28)
[2022-09-27] MEDS: Empagliflozin 25 MG TAB PO SCH (08:29)
[2022-09-27 11:52] VITALS: BP 133/81; TEMP 98
== END 2022-09-27 13:55 | disposition home health service (06) | DRG 65 ==
LOC: SUATTDRO 20:09 → ERS 20:09 → CCU 21:35 → NEURO 09-24 22:08
PROVIDERS: ADMIT Internal Medicine; ATTEND Internal Medicine
DX: I63.9 Cerebral infarction, unspecified (principal); R29.700 NIHSS score 0; Z92.82 Status post administration of tPA (rtPA) in a different facility within the last 24 hours prior to admission to current facility; E87.20 Acidosis, unspecified; G81.94 Hemiplegia, unspecified affecting left nondominant side; N17.9 Acute kidney failure, unspecified; F41.9 Anxiety disorder, unspecified; F32.A Depression, unspecified; E03.9 Hypothyroidism, unspecified; I12.9 Hypertensive chronic kidney disease with stage 1 through stage 4 chronic kidney disease, or unspecified chronic kidney disease; E11.22 Type 2 diabetes mellitus with diabetic chronic kidney disease; M79.602 Pain in left arm; E78.1 Pure hyperglyceridemia; E66.9 Obesity, unspecified; R29.810 Facial weakness; N40.0 Benign prostatic hyperplasia without lower urinary tract symptoms; E11.42 Type 2 diabetes mellitus with diabetic polyneuropathy; Z88.0 Allergy status to penicillin; Z88.8 Allergy status to other drugs, medicaments and biological substances; Z79.84 Long term (current) use of oral hypoglycemic drugs; Z68.33 Body mass index [BMI] 33.0-33.9, adult
CPT/HCPCS: 36415; 36416; 70450; 70551; 80048; 80053; 80061; 81001; 82010; 82607; 83036; 83605; 83735; 85025; 93306; 99285; J1650; J1815; J3475; J7050; Q9967; S0028

== ENCOUNTER 2022-10-15 15:31 | Emergency (ER) | payer MEDICARE ==
[2022-10-15 16:13] LABS: #Eosinphils 0.1 thou/uL (0.0-0.7); #Lymphocytes 1.3 thou/uL (1.20-3.40); #Monocytes 0.4 thou/uL (0.11-0.59); #Neutrophils 3.2 thou/uL (1.40-6.50); %Basophils 0.6 % (0.0-1.0); %Eosinophils 2.5 % (0.0-10.0); %Lymphocytes 26.1 % (21.0-51.0); %Monocytes 8.2 % (0.0-10.0); %Neutrophils 62.6 % (42.0-75.0); Hemoglobin 15.9 g/dL (14.0-18.0); Mean Corpuscular HGB CONC 34.9 g/dL (32.0-36.0); Mean Corpuscular Hemoglobin 31.8 pg (27.0-31.0); Mean Platelet Volume 8.1 fL (7.4-10.4); Platelet Count 116 10x3/uL (130-400); RBC Distribution Width 12.2 % (11.5-14.5); Red Blood Cell (RBC) Count 4.99 mill/uL (4.70-6.10); White Blood Cell (WBC) Count 5.1 10x3/uL (4.8-10.8)
[2022-10-15 16:37] LABS: ALT (SGPT) 28 U/L (8-55); AST (SGOT) 25 U/L (5-34); Alkaline Phosphatase 84 U/L (40-110); Anion Gap 13 mmol/L (10-20); BUN (Urea Nitrogen) 15 mg/dL (8.4-25.7); Bilirubin, Total 0.6 mg/dL (0.2-1.2); Calc. Creatinine Clearance 0 mL/min (70-130); Calcium 9.3 mg/dL (7.8-10.44); Carbon Dioxide 23 mmol/L (23-31); Chloride 104 mmol/L (98-107); Estimated GFR 56; Globulin 3.3 g/dL (2.4-3.5); Glucose 267 mg/dL (80-115); Potassium 4.1 mmol/L (3.5-5.1); Protein, Total 7.3 g/dL (5.8-8.1); Sodium 136 mmol/L (136-145)
[2022-10-15] MEDS ORDERED: Metoclopramide HCl 10 MG/2 ML VIAL ONE (16:48)
[2022-10-15] MEDS ORDERED: Ketorolac Tromethamine 30 MG/ML VIAL ONE (16:59)
[2022-10-15] MEDS ORDERED: Acetaminophen 325 MG TAB ONE (16:59)
[2022-10-15] MEDS ORDERED: diphenhydrAMINE 50 MG/ML VIAL ONE (16:59)
== END 2022-10-15 19:41 | disposition home or self-care (01) ==
LOC: ERS 15:31
DX: R51.9 Headache, unspecified (principal); E11.65 Type 2 diabetes mellitus with hyperglycemia; E11.22 Type 2 diabetes mellitus with diabetic chronic kidney disease; N18.9 Chronic kidney disease, unspecified; E78.00 Pure hypercholesterolemia, unspecified; I10 Essential (primary) hypertension; E03.9 Hypothyroidism, unspecified
CPT/HCPCS: 36415; 70450; 80053; 84484; 85025; 85652; 93005; 96365; 96375; J1200; J1885; J2765

== ENCOUNTER 2022-10-18 20:34 | Emergency (ER) | payer MEDICARE ==
[2022-10-19] MEDS ORDERED: HYDROcodone/Acetaminophen 5/325 mg Tablet ONE (00:38)
[2022-10-19] MEDS ORDERED: Ondansetron ODT 4 MG TAB ONE (00:39)
[2022-10-19] MEDS ORDERED: Clindamycin 150 MG CAP ONE (00:39)
== END 2022-10-19 00:51 | disposition home or self-care (01) ==
LOC: ERS 20:34
DX: K08.89 Other specified disorders of teeth and supporting structures (principal); R51.9 Headache, unspecified; E11.9 Type 2 diabetes mellitus without complications; E78.00 Pure hypercholesterolemia, unspecified; E03.9 Hypothyroidism, unspecified; I10 Essential (primary) hypertension
CPT/HCPCS: 99283; Q0162

== ENCOUNTER 2023-12-17 18:54 | Observation (INO) | payer MEDICARE ==
[2023-12-17 19:44] LABS: ALT (SGPT) 33 U/L (8-55); AST (SGOT) 29 U/L (5-34); Alkaline Phosphatase 106 U/L (40-110); Anion Gap 14 mmol/L (10-20); BUN (Urea Nitrogen) 21 mg/dL (8.4-25.7); Bilirubin, Total 0.7 mg/dL (0.2-1.2); Calc. Creatinine Clearance 0 mL/min (70-130); Calcium 9.8 mg/dL (7.8-10.44); Carbon Dioxide 23 mmol/L (23-31); Chloride 104 mmol/L (98-107); Estimated GFR 51; Globulin 3.7 g/dL (2.4-3.5); Glucose 310 mg/dL (80-115); Potassium 4.2 mmol/L (3.5-5.1); Protein, Total 7.7 g/dL (5.8-8.1); Sodium 137 mmol/L (136-145)
[2023-12-17 19:46] LABS: #Basophils 0.03 10x3/uL (0.0-0.2); %Basophils 0.5 % (0.0-1.0); %Eosinophils 2.4 % (0.0-10.0); %Lymphocytes 30.4 % (21.0-51.0); %Monocytes 9.4 % (0.0-10.0); %Neutrophils 56.7 % (42.0-75.0); Hematocrit 42.3 % (42.0-52.0); Hemoglobin 15.1 g/dL (14.0-18.0); Mean Corpuscular HGB CONC 35.7 g/dL (32.0-36.0); Mean Corpuscular Hemoglobin 31.9 pg (27.0-31.0); Mean Corpuscular Volume 89.4 fL (78.0-98.0); Mean Platelet Volume 10.9 fL (7.4-10.4); Platelet Count 129 10x3/uL (130-400); Red Blood Cell (RBC) Count 4.73 mill/uL (4.70-6.10); Troponin I Less than 0.010 ng/mL (< 0.028)
[2023-12-17] MEDS ORDERED: Aspirin Chewable 81 MG TAB ONE (19:57)
[2023-12-17] MEDS ORDERED: Glucagon 1 MG/ML KIT IM PRN (21:44)
[2023-12-17] MEDS ORDERED: Dextrose 5% in Water 1,000 ML IV PRN (21:44)
[2023-12-17] MEDS ORDERED: Nitroglycerin 2% Ointment 1 INCH/1 GM Packet TOP PRN (21:44)
[2023-12-17] MEDS ORDERED: Ondansetron ODT 4 MG TAB PO PRN (21:44)
[2023-12-17] MEDS ORDERED: Ondansetron PF 4 MG/2 ML Vial IVP PRN (21:44)
[2023-12-17] MEDS ORDERED: Dextrose 50% Abboject 50 ML SYRINGE SLOW IVP PRN (21:44)
[2023-12-17] MEDS ORDERED: Acetaminophen 325 MG TAB PO PRN (21:44)
[2023-12-17] MEDS: Insulin Lispro 100 UNIT/ML 10 ML VIAL SC PRN (22:53)
[2023-12-17 23:26] VITALS: BMI 33.8
[2023-12-18 00:34] LABS: Troponin I Less than 0.010 ng/mL (< 0.028)
[2023-12-18] MEDS: Lorazepam 0.5 MG TAB PO SCH (02:14)
[2023-12-18 04:33] LABS: #Basophils 0.03 10x3/uL (0.0-0.2); %Basophils 0.5 % (0.0-1.0); %Eosinophils 2.7 % (0.0-10.0); %Lymphocytes 38.8 % (21.0-51.0); %Monocytes 9.5 % (0.0-10.0); Hematocrit 41.5 % (42.0-52.0); Hemoglobin 14.6 g/dL (14.0-18.0); Mean Corpuscular HGB CONC 35.2 g/dL (32.0-36.0); Mean Corpuscular Hemoglobin 31.8 pg (27.0-31.0); Mean Corpuscular Volume 90.4 fL (78.0-98.0); Mean Platelet Volume 10.8 fL (7.4-10.4); Platelet Count 126 10x3/uL (130-400); Red Blood Cell (RBC) Count 4.59 mill/uL (4.70-6.10)
[2023-12-18 05:16] LABS: Troponin I Less than 0.010 ng/mL (< 0.028)
[2023-12-18 06:26] LABS: ALT (SGPT) 38 U/L (8-55); AST (SGOT) 24 U/L (5-34); Albumin 3.4 g/dL (3.4-4.8); Alkaline Phosphatase 96 U/L (40-110); Anion Gap 14 mmol/L (10-20); BUN (Urea Nitrogen) 20 mg/dL (8.4-25.7); Bilirubin, Total 0.6 mg/dL (0.2-1.2); Calc. Creatinine Clearance 102 mL/min (70-130); Calcium 9.5 mg/dL (7.8-10.44); Carbon Dioxide 22 mmol/L (23-31); Cardiac Risk 7.6 (Less than 4.5); Chloride 106 mmol/L (98-107); Cholesterol 206 mg/dl (< 200 Desired); Estimated GFR 64; Globulin 3.7 g/dL (2.4-3.5); Glucose 280 mg/dL (80-115); HDL Cholesterol 27 mg/dL (>60 Neg Risk); Magnesium 1.8 mg/dL (1.6-2.6); Potassium 3.6 mmol/L (3.5-5.1); Protein, Total 7.1 g/dL (5.8-8.1); Sodium 138 mmol/L (136-145); Triglycerides 714 mg/dL (Less than 150)
[2023-12-18 07:32] VITALS: BMI 33.8
[2023-12-18] MEDS: Aspirin Chewable 81 MG TAB PO SCH (08:13)
[2023-12-18 09:04] VITALS: TEMP 97.3
[2023-12-18] MEDS ORDERED: Adenosine 90 mg (30 mL) VIAL ONE (10:55)
[2023-12-18] MEDS ORDERED: Regadenoson 0.4 MG/5 ML SYRINGE ONE (10:58)
[2023-12-18 12:36] VITALS: BP 144/77
[2023-12-18] MEDS: Aripiprazole 15 MG TAB PO SCH (12:37)
[2023-12-18] MEDS: Levothyroxine Sodium 50 MCG TAB PO SCH (12:37)
[2023-12-18] MEDS: Insulin Regular, Human 100 UNIT/ML 10 ML VIAL SC PRN (13:49)
[2023-12-18 17:25] LABS: Hemoglobin A1c 8.2 % (4.0-6.0)
[2023-12-19] MEDS ORDERED: Levothyroxine Sodium 50 MCG TAB PO SCH (06:00)
== END 2023-12-18 15:40 | disposition home or self-care (01) ==
LOC: ERS 18:54 → 2SW 20:44
PROVIDERS: ADMIT Student in an Organized Health Care Education/Training Program; ATTEND Family Medicine
PROC: B246ZZZ Ultrasonography of Right and Left Heart (ICD-10-PCS; principal; 2023-12-18)
DX: R07.89 Other chest pain (principal); I08.9 Rheumatic multiple valve disease, unspecified; E03.9 Hypothyroidism, unspecified; E11.9 Type 2 diabetes mellitus without complications; E78.5 Hyperlipidemia, unspecified; I10 Essential (primary) hypertension; F32.A Depression, unspecified; Z79.84 Long term (current) use of oral hypoglycemic drugs; Z79.890 Hormone replacement therapy; Z79.899 Other long term (current) drug therapy; Z91.041 Radiographic dye allergy status; Z88.0 Allergy status to penicillin; Z88.8 Allergy status to other drugs, medicaments and biological substances; Z86.73 Personal history of transient ischemic attack (TIA), and cerebral infarction without residual deficits; Z90.49 Acquired absence of other specified parts of digestive tract
CPT/HCPCS: 71045; 78452; 80053; 80061; 82962 ×2; 83036; 83735; 84484 ×3; 85025; 93005; 93017; 93306; 94760 ×2; 99285; A9502; G0378 ×3; J1815 ×2; J2785 ×2; 36415; 36416; 84443; J0153